=== PATIENT | female | born 1985 | race Caucasian/White ===

== ENCOUNTER 2017-06-19 20:48 | Inpatient (IN) | payer MEDICAID, OTHER, SELFPAY ==
--- NOTE | 2017-06-19 22:13 | ULT ---
PELVIC ULTRASOUND: 06/19/17 INDICATION: Pelvic pain, right flank pain, back pain with fever. TECHNIQUE: Torres scale, color doppler and vascular duplex with spectral analysis performed of the pelvis via a tr ansabdominal and transvaginal approach. FINDINGS: The uterus measures 8.2 x 4.4 x 4.8 cm. Endometrial strip measures 0.5 cm. Right ovary measures 3.7 x 1.5 x 3 cm. There is a septated follicle within the right ovary measuring 1.4 cm. There is normal flow to the right ovary. Left ovary measures 3.0 x 4.3 x 3.3 cm. There are multiple follicles seen within the left ovary. No free fluid is evident. IMPRESSION: 1. No acute abnormality. 2. Mildly septated follicle within the right ovary likely reflective of an involuting follicle. 3. No free fluid demonstrated. POS: [facility]
--- NOTE | 2017-06-19 22:29 | ULT ---
RIGHT UPPER QUADRANT ULTRASOUND: 06/19/17 INDICATION: Pelvic pain and right flank pain and fever. FINDINGS: The liver measures 18.2 cm . There is a hyperechoic lesion seen within the right hepatic lobe measuri ng 1.1 cm that is stable to the comparison renal ultrasound dated 03/17/13 likely reflecting of a louis ngioma. An additional hypoechoic lesion is seen adjacent to the gallbladder measuring 2.9 cm. It is f airly heterogeneous in appearance. Comparison with a CT examination from [facility] on 06/19 demonstrates some nodularity of the liver within this region with some adjacent intrahepatic bili franco ductal dilatation but with no discernible mass. Residential Substance Abuse Counselor notes that this area measured 2.9 x 1. 7 x 2.2 cm. The gallbladder is distended without visible stones. No sonographic Tapia's sign is reported. The co mmon bile duct measures 1.6 mm which is normal. The right kidney measures 11.1 x 5.7 x 5.9 cm. There is a thick walled cystic lesion seen involving the right mid kidney measuring 4 x 3.8 x 3.6 cm. This corresponds to a mildly septated cyst seen within the right mid kidney on the prior renal ultra sound exam in 2013 measuring 2 cm. There was an adjacent hyperechoic mass suspicious for an angiomyol ipoma within the right kidney on the comparison study that is not well seen on the current study. No hydronephrosis is evident. The visualized pancreas is unremarkable. IMPRESSION: 1. Mildly complex thick walled cystic abnormality involving the right mid kidney appears more pr ominent than on the comparison examination in 2014. Followup CT of the abdomen utilizing renal mass p rotocol is recommended for additional characterization. 2. The previously seen hyperechoic mass seen within the right kidney on the comparison renal ult rasound dated 03/17/13 is not well seen and was suspicious for a small renal angiomyolipoma. There is no evidence to suggest hemorrhage on the CT examination performed at [facility]. T his could be further evaluated on the CT of the abdomen utilizing renal mass protocol. 3. Mildly distended gallbladder without evidence of acute cholecystitis or intraluminal stones. 4. Stable hemangioma within the right hepatic lobe. 5. Hypoechoic lesion suggested on the current ultrasound examination adjacent to the gallbladder is not definitely seen on the recently performed CT. This can be further assessed on the multiphase examination recommended above. 6. Urology consultation may be helpful at some point in time for evaluation of the patient's com plex cystic lesion seen within the right mid kidney. POS: [facility]
[2017-06-19] MEDS ORDERED: Ondansetron HCl/PF 4 MG/2 ML Vial IVP PRN (22:56)
[2017-06-19] MEDS ORDERED: Acetaminophen 1,000 MG in Premix Bag 1 BAG IVPB PRN (23:00)
[2017-06-19] MEDS ORDERED: Morphine 4 MG/ML VIAL SLOW IVP PRN ×2 (23:30)
[2017-06-19] MEDS: D5 1/2 NS w/20 mEq KCL 1,000 ML IV SCH (23:43)
--- NOTE | 2017-06-20 01:00 | HP ---
CHIEF COMPLAINT: Pelvic pain. HISTORY OF PRESENT ILLNESS: The patient is a 32-year-old female who reports about a 20-hour history of lower abdominal pain associated with fever to 103 degrees. She denies any nausea or vomiting. Sh e never had any previous episodes. Last menstrual period was 2 weeks ago. She denies any change in bowel habits or diarrhea. No dysuria. PAST MEDICAL HISTORY: She has bipolar depression. PAST SURGICAL HISTORY: None. MEDICATIONS: Effexor. ALLERGIES: No known drug allergies. SOCIAL HISTORY: She is , smokes one-half to 1 pack per day. Denies alcohol use. She is un employed. FAMILY HISTORY: Father had congestive heart failure. Mother with breast cancer and ovarian cancer. PHYSICAL EXAMINATION: VITAL SIGNS: Temperature 100, pulse 94, blood pressure 132/94. GENERAL: She is a thin female lying still, awake, alert. HEENT: Unremarkable. LUNGS: Clear. HEART: Regular rate and rhythm. ABDOMEN: Distended. She is tender on the right flank, right lower quadrant, and the pelvis. I do n ot feel any masses. EXTREMITIES: Normal. LABORATORY AND X-RAY FINDINGS: CT scan showed a cystic lesion in her kidney, somewhat distended gall bladder and a hemangioma in the liver. She was sent here for further evaluation. Here, she had an u ltrasound that showed complex cystic lesion right mid kidney. There is a probable hemangioma in her liver, distended gallbladder, no stones, no sonographic Tapia sign. Ultrasound of the pelvis showed no free fluid and recent ovarian cystic rupture. HCG is negative. LFTs normal. White count is 20, 000, H&H 13 and 37, platelet count 361. Urinalysis 2-5 white cells. ASSESSMENT: Right lower quadrant pain, tenderness, fever, leukocytosis. Normal CT with abnormal rig ht kidney as well. PLAN: Admit, IV antibiotics. If in the morning, she is not any better, recommend diagnostic laparos copy with appendectomy.
[2017-06-20] MEDS: Meropenem 2 GM, Admixture Fee 1 EACH in Sodium Chloride 0.9% 100 ML IVPB SCH ×4 (01:49→23:45)
[2017-06-20 02:41] VITALS: BMI 18.0
[2017-06-20 05:08] LABS: Anion Gap 13 mmol/L (10-20); BUN (Urea Nitrogen) 8 mg/dL (7.0-18.7); Calc. Creatinine Clearance 88 mL/min (70-130); Calcium 8.7 mg/dL (7.8-10.44); Carbon Dioxide 25 mmol/L (22-29); Chloride 104 mmol/L (98-107); Estimated GFR-MDRD Greater than 90; Glucose 91 mg/dL (70-105); Potassium 3.8 mmol/L (3.5-5.1); Sodium 138 mmol/L (136-145)
[2017-06-20 05:23] LABS: Band 8 % (5-11); Hemoglobin 11.6 g/dL (12.0-16.0); Lymphocytes 10 % (21-51); MDiff Complete? YES; Mean Corpuscular HGB CONC 32.7 g/dL (32.0-36.0); Mean Corpuscular Hemoglobin 29.5 pg (27.0-31.0); Mean Corpuscular Volume 90.2 fl (81.0-99.0); Mean Platelet Volume 7.3 fL (7.4-10.4); Monocytes 7 % (0-10); Neutrophil 71 % (42-75); PLT Morphology Comment Appears Adequate; Platelet Count 318 thou/uL (130-400); RBC Distribution Width 13.1 % (11.5-14.5); RBC Morphology Normal; Reactive Lymphocytes 4 % (0-10); Red Blood Cell (RBC) Count 3.95 mill/uL (4.20-5.40); White Blood Cell (WBC) Count 22.1 thou/uL (4.8-10.8)
[2017-06-20] MEDS: D5 1/2 NS w/20 mEq KCL 1,000 ML IV SCH ×3 (06:32→20:57)
[2017-06-20] MEDS ORDERED: Morphine 4 MG/ML VIAL ONE (07:53)
[2017-06-20] MEDS ORDERED: Bupivacaine/Epinephrine 0.25% 30 ML VIAL ONE (08:52)
[2017-06-20] MEDS ORDERED: Fentanyl 250 MCG/5 ML VIAL ONE (09:04)
[2017-06-20] MEDS ORDERED: Midazolam HCl 2 mg/2 ml Vial ONE (09:04)
[2017-06-20] MEDS ORDERED: Dextrose 50% Abboject 50 ML SYRINGE SLOW IVP PRN (10:17)
[2017-06-20] MEDS ORDERED: Ondansetron HCl/PF 4 MG/2 ML Vial IVP PRN ×2 (10:17→10:32)
[2017-06-20] MEDS ORDERED: Dextrose 5% in Water 1,000 ML IV PRN (10:17)
[2017-06-20] MEDS ORDERED: Promethazine HCl 25 MG/ML VIAL IM PRN ×2 (10:17→10:32)
[2017-06-20] MEDS ORDERED: HYDROcodone/Acetaminophen 10/325 mg Tablet PO PRN (10:17)
[2017-06-20] MEDS ORDERED: hydrALAZINE 20 MG/ML VIAL SLOW IVP PRN (10:17)
[2017-06-20] MEDS ORDERED: Promethazine HCl 25 MG/ML VIAL SLOW IVP PRN (10:32)
[2017-06-20] MEDS: Piperacillin/Tazobactam 3.375 GM in Sodium Chloride 0.9% 100 ML IVPB SCH ×3 (12:15→23:44)
--- NOTE | 2017-06-20 12:59 | OP ---
PREOPERATIVE DIAGNOSIS: Right lower quadrant pain with fever. SURGEON: Lj Galicia M.D. PROCEDURES PERFORMED: Diagnostic laparoscopy, laparoscopic appendectomy, removal of pelvic fluid for culture, wedge liver biopsy. INDICATIONS: This is a 32-year-old female who presented with a 24-hour history of right lower quadra nt pain. She is very thin. CT scan and ultrasound, negative. FINDINGS: Normal appendix. She had a non-incarcerated left inguinal hernia. She had a normal smal l bowel, normal colon, normal gallbladder. She had a solid mass that was somewhat suspicious just ab ove the gallbladder, which was biopsied. PROCEDURE IN DETAIL: After informed consent was obtained, the patient was taken to the operating pedro m and given general endotracheal anesthesia. She was placed in the supine position. The abdomen was prepped and draped in the usual fashion. Local anesthesia infiltrated subcutaneously and deep. A s ubumbilical incision was performed. The subcu divided sharply. The fascia grasped and two stay sutu res of 0 Vicryl placed to either side of midline. Midline incised. Digital palpation revealed no lo prabhu adhesions. A blunt 10/12 mm trocar inserted. Pneumoperitoneum was created to a pressure of 15 m mHg. The patient placed in Trendelenburg right side up position. Two 5-mm ports were placed, one in suprapubic and one in the right lateral abdomen. Cecum was found. The appendix was in the pelvis. The appendix was found and it appeared fairly normal. The mesoappendix was divided utilizing the Li gaSure. The base of the appendix was divided utilizing the linear 45 mm stapler. This was placed in an Endosac and removed from the abdomen in an Endosac and in the pelvis with some cloudy peritoneal fluid. This was aspirated and sent for culture. The ovaries were inspected. There were some follic ular cysts, but no evidence of pelvic inflammatory disease. This fluid was removed and sent for cult ure. The cecum looked normal. The ileum was inspected and ran back 3 feet, I did not see Meckel's, did not see evidence of Crohn's disease. On the left side, she had asymptomatic left inguinal hernia , which was empty, did not contain any viscera. The gallbladder appeared normal, but there was a pardeep id mass in the liver just above the gallbladder on the right lobe of the liver. This was biopsied. By using a wedge biopsy, the mass was partially excised utilizing Metzenbaum scissors and pieces were removed and sent to pathology. Other pieces were sent for AFB and fungus. The abdomen was irrigate d and irrigation fluid removed. Hemostasis was assured. Trocars and retractors removed. The fascia closed with interrupted 0 Vicryl suture. The skin closed with interrupted 4-0 Rapide. Dermabond ap plied. The patient tolerated the procedure well and was transferred to recovery in good condition. Sponge and needle count verified correct x2.
[2017-06-20] MEDS: Morphine 4 MG/ML VIAL SLOW IVP PRN ×3 (15:27→23:44)
[2017-06-20] MEDS ORDERED: PROPOFOL 200 MG/20 ML VIAL ONE (16:32)
[2017-06-20] MEDS ORDERED: diphenhydrAMINE 50 MG/ML VIAL ONE (16:32)
[2017-06-20] MEDS ORDERED: Dexamethasone 20 MG/5 ML VIAL ONE (16:32)
[2017-06-20] MEDS ORDERED: Succinylcholine Chloride 20 MG/ML 10 ml SYRINGE FS ONE (16:32)
[2017-06-20] MEDS ORDERED: Lidocaine 1% PF 5 ML VIAL ONE (16:32)
[2017-06-20] MEDS ORDERED: Glycopyrrolate 0.2 MG/ML 5 ML SYRINGE ONE (16:32)
[2017-06-20] MEDS ORDERED: PHENYLEPHRINE-NS 100 MCG/ML 10 ML SYRINGE ONE (16:32)
[2017-06-20] MEDS ORDERED: ePHEDrine/0.9% NaCl/PF SYRINGE 50 mg/10 ml ONE (16:32)
[2017-06-20] MEDS: HYDROcodone/Acetaminophen 10/325 mg Tablet PO PRN ×2 (16:51→21:03)
[2017-06-20] MEDS: Famotidine 20 MG TAB PO SCH (20:57)
[2017-06-20] MEDS ORDERED: Famotidine/PF 20 mg/2ml Vial SLOW IVP SCH (21:00)
--- NOTE | 2017-06-20 23:52 | CON ---
DATE OF HOSPITAL ADMISSION: 06/19/2017 DATE OF CONSULTATION REQUEST AND REPORT: 06/20/2017 REFERRING PHYSICIAN: Lj Galicia M.D. CHIEF COMPLAINT: 1. Right renal cyst of 4 years duration. N28.1 2. Right-sided abdominal and back pain for 2 weeks. R10.9 HISTORY OF PRESENT ILLNESS: Ms. Macarena Davidson is a 32-year-old unemployed white female, who reports that she has had pain in the right lower abdomen with associated fever to 103 degrees at home and has had pain symptoms intermittently over a period of about 2 weeks. She reports that any pressure on her abdomen or back bothers her. She does not report nausea or vomiting or colicky nature to her pain. She reports that is being continuous and is especially pressure related to the abdomen. The patient does not report nausea and vomiting. She has no history of passed kidney stones. She has no previous urologic history except for a renal cyst, which has been present in her kidney for about 4 years. The patient is unaware of the presence of her renal cyst. PAST MEDICAL HISTORY: 1. Chronic right-sided renal cyst present for more than 4 years. 2. Bipolar depression. 3. Polysubstance abuse. PAST SURGICAL HISTORY: None prior to this hospitalization, the patient did undergo an appendectomy and wedge resection of her liver for biopsy purposes on this hospital admission by Dr. Galicia. HOME MEDICATION LIST: Includes only Effexor. ALLERGIES: The patient has no known drug allergies. SOCIAL HISTORY: The patient is from her who is incarcerated. She has another sexual partner at the present time. She does not report any other issues. She does have a past history of cocaine use, also smokes one- half to 1 pack of cigarettes per day. She has 3 children at home. GYNECOLOGIC HISTORY: The patient is a 3, para 3. She has normal menstrual cycle of approximately 30 days. She reports her last menstrual period was about 2 weeks ago. She does not report abnormal vaginal discharge. FAMILY MEDICAL HISTORY: The patient's father had congestive heart failure. The patient's mother had breast and ovarian cancer. PHYSICAL EXAMINATION: VITAL SIGNS: Temperature is 97.8, pulse 72, respirations 20, O2 saturation is 99% on room air, and blood pressure is 99/64. The patient did have a temperature of 100.6 at admission yesterday. GENERAL: This is a thin built white female who is observed eating a cookie and has pizza at the bedside. She is apparently tolerating a diet at this point after recent surgery. She does move about the bed a fair amount and does not seem to be restricted in movement by pain symptoms. She assumes a position when discussing pain. HEAD, EYES, EARS, NOSE AND THROAT: Extraocular movements are intact. Sclerae are anicteric. Oropharynx is clear. NECK: Supple. LUNGS: Clear bilaterally. CARDIAC: Regular rate and rhythm. ABDOMEN: The patient has undergone recent surgery by Dr. Galicia. The patient reports pain symptoms located on the right of the midline in the abdomen. She reports pain in the right back area also. There is no true costovertebral angle tenderness. The patient has cognitive reflexes to palpation. These are not typical for a genitourinary disorder. PELVIS: Deferred. EXTREMITIES: The patient has full use of the bilateral lower extremities. PSYCHOLOGIC: The patient is more or less not cooperative with examination or evaluation. LABORATORY STUDIES: The patient's admission white count was 22,000, hemoglobin is 11.6, hematocrit of 35.6. Her differential had 71% neutrophils in normal range with a lymphocytosis of 10%. Serum chemistry shows the patient's blood urea nitrogen at 8 with a creatinine of 0.64. Estimated GFR of greater than 90% . No urinalysis is available for assessment. Microbiology is only available for fluids and tissue obtained at surgery. These are all still pending. RADIOLOGIC STUDIES: The patient apparently had a CT scan performed at [place] , which is not available for evaluation or assessment here at the [facility]. I do have a report from the radiologist regarding comparisons between those CT studies and ultrasound studies. I did compare the patient's right upper quadrant ultrasound, which included the patient's right kidney from 03/17/2013 to the current study of 06/19/2017. The patient does have right-sided renal cyst which in 2013 would be classed at least to 2F if not class 3. The patient's cyst had some mild wall thickening which was suspicious at that point. Current study from 06/19/2017 shows relative thinning of the previously observed thickened area, currently I would class the cyst at 2F or class 2. The cyst is located within the parenchyma of the patient 's right kidney which results in a relatively large compression of surrounding tissue and gives the impression of a thick wall. There is no increased blood flow in the wall on Doppler evaluation suggesting that this is not a metabolically active cyst. The cyst has demonstrated relative stability and a relative decrease in Bosniak class over the four-year duration between the two studies. Since this cyst has been present for more than 4 years is unlikely be the source of the patient's current pain symptoms which have been present only over the last two weeks. Previous ultrasound evaluation of the patient suggest the presence of an angiomyolipoma, which is apparently not well visualized on CT scanning of the patient's abdomen from [place]. ASSESSMENT AND PLAN: 1. Non-urologic flank pain. 2. Right renal cyst, Bosniak class 2-2F. The cysts have been reasonably stable over the last 4 years. They could be further evaluated by CT scanning. The patient did have a CT scan in [place] which is not available for evaluation or assessment here. The patient could have a repeat CT scan of the abdomen, specifically as a renal mass protocol to further evaluate renal cysts and lesions. Discussed this with the patient and she refuses further imaging. 3. Follow up. Patient may follow up in my office if she desires further evaluation of her renal cysts in the future. This initial hospital evaluation and assessment 70 minutes greater than 1/2 of which was in direct face to face evaluation of patient and in coordination of care, exclusive of any procedures performed [id number]. [facility]
[2017-06-21 04:35] LABS: #Eosinphils 0.1 thou/uL (0.0-0.7); #Lymphocytes 2.1 thou/uL (1.20-3.40); #Monocytes 1.8 thou/uL (0.11-0.59); #Neutrophils 17.9 thou/uL (1.40-6.50); %Eosinophils 0.5 % (0.0-10.0); %Lymphocytes 9.7 % (21.0-51.0); %Monocytes 8.1 % (0.0-10.0); %Neutrophils 81.6 % (42.0-75.0); Hemoglobin 11.1 g/dL (12.0-16.0); Mean Corpuscular HGB CONC 31.6 g/dL (32.0-36.0); Mean Corpuscular Hemoglobin 29.2 pg (27.0-31.0); Mean Corpuscular Volume 92.4 fl (81.0-99.0); Mean Platelet Volume 7.8 fL (7.4-10.4); Platelet Count 344 thou/uL (130-400); RBC Distribution Width 13.2 % (11.5-14.5); Red Blood Cell (RBC) Count 3.79 mill/uL (4.20-5.40)
[2017-06-21 04:42] LABS: Anion Gap 8 mmol/L (10-20); BUN (Urea Nitrogen) 12 mg/dL (7.0-18.7); Calc. Creatinine Clearance 91 mL/min (70-130); Calcium 8.9 mg/dL (7.8-10.44); Carbon Dioxide 27 mmol/L (22-29); Chloride 107 mmol/L (98-107); Estimated GFR-MDRD Greater than 90; Glucose 178 mg/dL (70-105); Potassium 4.4 mmol/L (3.5-5.1); Sodium 138 mmol/L (136-145)
[2017-06-21] MEDS: D5 1/2 NS w/20 mEq KCL 1,000 ML IV SCH ×2 (05:36→15:02)
[2017-06-21] MEDS: Piperacillin/Tazobactam 3.375 GM in Sodium Chloride 0.9% 100 ML IVPB SCH ×4 (05:36→23:33)
[2017-06-21] MEDS: HYDROcodone/Acetaminophen 10/325 mg Tablet PO PRN ×4 (05:40→23:34)
[2017-06-21] MEDS: Enoxaparin Sodium 40 MG/0.4 ML SYRINGE SC SCH (08:18)
[2017-06-21] MEDS: Famotidine 20 MG TAB PO SCH ×2 (08:18→20:44)
[2017-06-21] MEDS: Meropenem 2 GM, Admixture Fee 1 EACH in Sodium Chloride 0.9% 100 ML IVPB SCH ×2 (08:18→15:02)
[2017-06-21] MEDS: Morphine 4 MG/ML VIAL SLOW IVP PRN ×3 (08:23→20:44)
--- NOTE | 2017-06-21 13:54 | CT ---
CT ABDOMEN AND PELVIS WITH IV ENTERIC CONTRAST: INDICATIONS: History of appendicitis yesterday, now with surgical site pain. FINDINGS: There is a small amount of scattered intraperitoneal gas, consistent with the patient's recent postop state. A small amount of gas is seen overlying the right lower quadrant of the abdomen, which may b e related to the patient's surgical site. No large drainable fluid collection is evident. When compared to the prior CT examination from [facility] on 06/19/2017, periportal edema a nd intrahepatic biliary ductal dilatation remain. There are some layered densities now seen within t he gallbladder, which may reflect vicarious excretion of contrast within the gallbladder or a small a mount of gallbladder sludge that has developed in the interval. The complex cystic abnormality invol ving the right mid kidney measures 4.7 cm. There is a simple cyst seen within the left kidney. The adrenal glands, pancreas, and spleen appear within normal limits. No large drainable fluid collectio n is seen within the abdomen or pelvis. Mild free fluid is seen within the lower pelvis. The small and large bowel are unobstructed. No acute osseous abnormality is evident. IMPRESSION: 1. Interval post surgical change with intraperitoneal gas seen within the abdomen and pelvis. 2. Gas seen within the soft tissues overlying the right lower quadrant of the abdomen, as well as in the periumbilical region, which is likely related to incisional sites. No large drainable fluid col lection is evident. 3. Mild free fluid in the pelvis. 4. Persistent mild intrahepatic biliary ductal dilatation with mild periportal edema. 5. Stable complex cystic abnormality involving the right mid kidney. POS: [facility]
[2017-06-21] MEDS ORDERED: ISOVUE-370 76%-LOCM 1 ML ONE (16:10)
[2017-06-21] MEDS ORDERED: Iopamidol 370 76% 50 ML VIAL FS ONE (16:10)
[2017-06-21 17:00] LABS: Bilirubin Negative (Negative); Blood, Urine Negative (Negative); Clarity CLEAR (Clear); Glucose, Urine (Dipstick) Negative (Negative); Leukocyte Negative (Negative); Nitrite Negative (Negative); Protein, Urine (Dipstick) Negative (Neg-Trace); Specific Gravity, Urine 1.042 (1.002-1.036)
[2017-06-21 17:03] LABS: Bacteria/HPF None Seen HPF (None Seen); Hyaline Casts/LPF 0-3 HYALINE CAST LPF (0-3 Hyaline); Pathc Cast-AUWi Flag 0.72 (0-2.49); RBC/HPF 0-3 HPF (0-3); Squamous Epithelial 0-3 HPF (0-3)
[2017-06-22] MEDS: Meropenem 2 GM, Admixture Fee 1 EACH in Sodium Chloride 0.9% 100 ML IVPB SCH ×3 (00:43→17:29)
[2017-06-22] MEDS: Morphine 4 MG/ML VIAL SLOW IVP PRN ×4 (02:42→20:11)
[2017-06-22] MEDS: D5 1/2 NS w/20 mEq KCL 1,000 ML IV SCH ×4 (02:43→23:12)
[2017-06-22] MEDS: Piperacillin/Tazobactam 3.375 GM in Sodium Chloride 0.9% 100 ML IVPB SCH ×4 (05:58→23:09)
[2017-06-22] MEDS: HYDROcodone/Acetaminophen 10/325 mg Tablet PO PRN ×4 (06:00→23:08)
[2017-06-22 06:28] LABS: Band 7 % (5-11); Hemoglobin 11.3 g/dL (12.0-16.0); Hypochromia SLIGHT = 6-15 cells (100X) (0-5/hpf); Lymphocytes 11 % (21-51); MDiff Complete? YES; Mean Corpuscular HGB CONC 30.9 g/dL (32.0-36.0); Mean Corpuscular Hemoglobin 28.5 pg (27.0-31.0); Mean Corpuscular Volume 92.1 fl (81.0-99.0); Mean Platelet Volume 7.4 fL (7.4-10.4); Monocytes 4 % (0-10); Neutrophil 77 % (42-75); PLT Morphology Comment Appears Increased; Platelet Count 415 thou/uL (130-400); Polychromasia SLIGHT = 2-3 cells (100X) (0-2/hpf); RBC Distribution Width 13.1 % (11.5-14.5); Reactive Lymphocytes 1 % (0-10); Red Blood Cell (RBC) Count 3.96 mill/uL (4.20-5.40); White Blood Cell (WBC) Count 18.5 thou/uL (4.8-10.8)
[2017-06-22] MEDS: Enoxaparin Sodium 40 MG/0.4 ML SYRINGE SC SCH (08:20)
[2017-06-22] MEDS: Famotidine 20 MG TAB PO SCH ×2 (08:20→20:10)
[2017-06-22] MEDS ORDERED: Magnesium Citrate 300 ML BOT PO SCH (16:15)
--- NOTE | 2017-06-22 18:20 | PRG ---
DATE OF SERVICE: 06/22/2017 SUBJECTIVE: Macarena Davidson is complaining of pain today and she wants to go home. OBJECTIVE: VITAL SIGNS: 98.5 degrees, 89, 111/76. LUNGS: Clear to auscultation. CARDIAC: Regular rate and rhythm without murmur or gallop. ABDOMEN: Soft. She has diffuse tenderness with voluntary guarding. Otherwise, abdomen is soft. EXTREMITIES: Surgical wounds look good, clean and dry. LABORATORY DATA: This morning, her white count is down to 18,000 from 22,000 yesterday. Her differe ntial is essentially unremarkable. Basic metabolic profile is normal. Cultures remain negative. ASSESSMENT AND PLAN: Leukocytosis, abdominal pain of uncertain etiology. Abdominal pelvic CAT scan obtained yesterday was essentially unremarkable and does not reveal anything to explain her leukocyto sis, pain or fever. Dr. Ojeda' consultation is pending. She does have quite a bit of stool in her r ight colon. We will give her magnesium citrate to see if that helps her symptoms at all.
[2017-06-23] MEDS: Meropenem 2 GM, Admixture Fee 1 EACH in Sodium Chloride 0.9% 100 ML IVPB SCH ×4 (00:21→23:50)
[2017-06-23] MEDS: HYDROcodone/Acetaminophen 10/325 mg Tablet PO PRN ×5 (03:13→22:11)
[2017-06-23] MEDS: Morphine 4 MG/ML VIAL SLOW IVP PRN ×4 (05:37→20:33)
[2017-06-23] MEDS: Piperacillin/Tazobactam 3.375 GM in Sodium Chloride 0.9% 100 ML IVPB SCH ×4 (05:38→23:11)
[2017-06-23] MEDS: D5 1/2 NS w/20 mEq KCL 1,000 ML IV SCH ×3 (08:14→22:18)
[2017-06-23] MEDS: Famotidine 20 MG TAB PO SCH ×2 (08:15→20:33)
[2017-06-23] MEDS: Enoxaparin Sodium 40 MG/0.4 ML SYRINGE SC SCH (08:15)
[2017-06-23 15:06] LABS: ALT (SGPT) 21 U/L (8-55); AST (SGOT) 13 U/L (5-34); Alkaline Phosphatase 135 U/L (40-150); Bilirubin, Direct 0.1 mg/dL (0.1-0.3); Bilirubin, Total 0.2 mg/dL (0.2-1.2)
--- NOTE | 2017-06-23 15:26 | CON ---
DATE OF CONSULTATION: 06/23/2017 REASON FOR CONSULTATION: Abdominal pain, fever. HISTORY OF PRESENT ILLNESS: A 32-year-old who has a history of depression and history of prior IV drug use, methamphetamine and cocaine. Reportedly, last episode was about 8 months ago who developed intermittent headaches with fever for the past 2-3 weeks before admission. A week and half before admission, she developed abdominal pain, which is described in the lower abdominal segment. No visual symptoms, sore throat, odynophagia, dysphagia, no toothache, moderate back pain after she was admitted. She has chronic back pain intermittently. No cough, no dyspnea or chest pain. No genitourinary symptoms. No diarrhea, no constipation or bleeding, no joint symptoms. No neurological symptoms. PAST MEDICAL HISTORY: Bipolar disorder. PAST SURGICAL HISTORY: Negative until current procedure. ALLERGIES: None. SOCIAL HISTORY: . Current smoker, history of IV drug use in the past including methamphetamine and cocaine, last time she used reportedly 8 months ago. FAMILY HISTORY: Cardiomyopathy, breast cancer, ovarian cancer. PHYSICAL EXAMINATION: VITAL SIGNS: T-max 100.6 and then 100.4, now she has been afebrile, blood pressure 130/87, pulse 90, respirations 16, O2 sat 95%-99%. SKIN: Shows few tattoos. She has peripheral IV access. No Dotson catheter and she have ports for the laparoscopy which have the usual appearance. No lymphadenopathy. HEENT: Ocular movements conjugate. Sclerae are white. Conjunctivae normal. Pupils are equal and reactive. Oral cavity normal. Teeth in good shape. NECK: Supple, no jugular vein distention. LUNGS: With symmetric clear breath sounds. HEART: S1 and S2, regular rate without murmurs, fairly prominent S4. ABDOMEN: Moderately distended and quite tender to palpation. She did not allow me to properly examine it because of the fear of tendon of pain being induced. No bladder distention. EXTREMITIES: No joint inflammatory activity. Pulses 1+ and dorsalis pedis. Plantar responses are flexure. She moves extremities equally. Cognitive function appears to be intact. LABORATORY DATA AND IMAGING DATA: Showed white cell count initially of 22,000, now 18.5, hemoglobin 11, platelets 318 and now 450, neutrophils 77%. Sodium 138 , creatinine 0.64. Urinalysis with 4-6 wbc's, 0-3 rbc's. There is a pelvis ultrasound from 03/17/2017 which showed an intrauterine gestation. There is an abdominal ultrasound from 06/19/2017 with mildly complex thick walled cystic abnormality in the right mid kidney more prominent on comparison with exam in 2013. There was a hyperechoic mass in right kidney, felt to be an angiomyolipoma, mildly distended gallbladder, but no evidence of cholecystitis hemangioma within the right hepatic lobe. There is a pelvic transvaginal ultrasound with no acute abnormality and a septated follicle within the right ovary. There is an abdomen and pelvis CT with surgical changes with intraperitoneal gas, gas in soft tissues in the right lower quadrant, also probably surgical changes related. No fluid collection noted. Mild free fluid in the pelvis and mild intrahepatic biliary ductal dilatation with mild periportal edema. Cultures from the pelvic fluid yielded various anaerobes. ASSESSMENT: 1. History of IV drug use, last time few months ago. 2. Fever for the past 2-3 weeks. 3. Abdominal pain with negative findings on laparoscopy except for lesion in the liver of unknown nature, which was biopsied. 4. Persistence of abdominal tenderness. 5. Mild dilatation of the biliary system. 6. Mixed anaerobic pelvic inflammatory process DISCUSSION: Differential diagnosis includes Pelvic inflammatory disease with mixed anaerobes without tuboovarian abscess, endocarditis in view of the history of IV drug use with possible embolic phenomena. A colon associated inflammatory process does not appear likely in view of the negative laparoscopy. We will check 2D echocardiogram. Unfortunately, blood cultures do not seem to have been submitted. Wait on the above results of the biopsy. Check HIV and hepatitis C serology. Check cryoglobulin titer and liver panel which has not been submitted yet. Continue antimicrobial tx for a presumed pelvic inflammatory process with mixed anaerobic julianne. MTDD
[2017-06-23 15:31] LABS: HIV (1/2) Antibody/Antigen Non-Reactive (NonReactive); HIV 1/2 INDEX 0.14 S/CO (<1.00); Hep C IgG Ab Non-Reactive (NonReactive); Hep C Index 0.18 S/CO (0-0.79)
--- NOTE | 2017-06-23 20:50 | PRG ---
DATE OF SERVICE: 06/23/2017 SUBJECTIVE: Macarena Davidson is tolerating a regular diet. When I walked into the room, she was sleep ing in her bed with her significant other. When I awaked her to ask her how she is doing, she grimac es and states not well. She, however, does state she is tolerating regular diet, having bowel functi on. OBJECTIVE: LUNGS: Clear to auscultation. CARDIAC: Regular rate and rhythm without murmur or gallop. ABDOMEN: Voluntary guarding. Soft, bowel sounds present. No peritoneal signs. LABORATORY DATA: No laboratories. ASSESSMENT AND PLAN: Has been seen by Dr. Ojeda, await laboratory studies, to recheck CBC in the [facility]. No other changes today.
[2017-06-24] MEDS: HYDROcodone/Acetaminophen 10/325 mg Tablet PO PRN ×3 (03:39→12:12)
[2017-06-24 05:24] LABS: #Eosinphils 0.5 thou/uL (0.0-0.7); #Lymphocytes 1.6 thou/uL (1.20-3.40); #Monocytes 0.8 thou/uL (0.11-0.59); #Neutrophils 10.9 thou/uL (1.40-6.50); %Basophils 0.1 % (0.0-1.0); %Eosinophils 3.6 % (0.0-10.0); %Lymphocytes 11.8 % (21.0-51.0); %Monocytes 5.7 % (0.0-10.0); %Neutrophils 78.7 % (42.0-75.0); Hemoglobin 11.6 g/dL (12.0-16.0); Mean Corpuscular HGB CONC 32.6 g/dL (32.0-36.0); Mean Corpuscular Hemoglobin 29.6 pg (27.0-31.0); Mean Corpuscular Volume 90.9 fl (81.0-99.0); Mean Platelet Volume 6.7 fL (7.4-10.4); Platelet Count 473 thou/uL (130-400); RBC Distribution Width 12.9 % (11.5-14.5); Red Blood Cell (RBC) Count 3.92 mill/uL (4.20-5.40); White Blood Cell (WBC) Count 13.9 thou/uL (4.8-10.8)
[2017-06-24] MEDS: Piperacillin/Tazobactam 3.375 GM in Sodium Chloride 0.9% 100 ML IVPB SCH ×2 (05:31→11:59)
[2017-06-24] MEDS: Meropenem 2 GM, Admixture Fee 1 EACH in Sodium Chloride 0.9% 100 ML IVPB SCH (08:25)
[2017-06-24] MEDS: Famotidine 20 MG TAB PO SCH (08:25)
[2017-06-24] MEDS: Enoxaparin Sodium 40 MG/0.4 ML SYRINGE SC SCH (08:25)
[2017-06-24] MEDS: D5 1/2 NS w/20 mEq KCL 1,000 ML IV SCH (08:28)
[2017-06-24 09:11] LABS: Fungus Stain Final report (.)
--- NOTE | 2017-06-24 10:45 | DIS ---
DISCHARGE DIAGNOSES: Appendicitis, focal nodular hyperplasia of the liver. PROCEDURES DURING ADMISSION: Laparoscopic appendectomy, laparoscopic wedge liver biopsy. CT scans o f abdomen and pelvis. HOSPITAL COURSE: The patient was admitted. CT scan was negative. She continued to have right lower quadrant abdominal pain. She was taken to the operating room where she underwent a diagnostic lapar oscopy and laparoscopic appendectomy. Postoperatively, she continued to have high fever and white co unt. Infectious Disease was consulted. We really could not come up with a definite source. However , the pathology came back early appendicitis, focal nodular hyperplasia of the liver. She is feeling a lot better today. She is tolerating a diet. She is passing stool and gas. [facility]. We will send her home with doxycycline, Zofran and [place].
[2017-06-24 11:52] VITALS: BP 117/79; TEMP 97.6
== END 2017-06-24 13:31 | disposition home or self-care (01) | DRG 343 ==
LOC: ERS 20:48 → SURG A 22:59
PROVIDERS: ADMIT Surgery; ATTEND Surgery
PROC: 0DTJ4ZZ Resection of Appendix, Percutaneous Endoscopic Approach (ICD-10-PCS; principal; 2017-06-20)
PROC: 0FB14ZX Excision of Right Lobe Liver, Percutaneous Endoscopic Approach, Diagnostic (ICD-10-PCS; 2017-06-20)
DX: R10.31 Right lower quadrant pain (principal); K76.89 Other specified diseases of liver; N28.1 Cyst of kidney, acquired; R50.9 Fever, unspecified; D72.829 Elevated white blood cell count, unspecified; K37 Unspecified appendicitis; F14.10 Cocaine abuse, uncomplicated; F32.9 Major depressive disorder, single episode, unspecified; F15.10 Other stimulant abuse, uncomplicated; F31.9 Bipolar disorder, unspecified; F17.210 Nicotine dependence, cigarettes, uncomplicated; K40.90 Unilateral inguinal hernia, without obstruction or gangrene, not specified as recurrent; Z82.49 Family history of ischemic heart disease and other diseases of the circulatory system
CPT/HCPCS: 36415; 74177; 76705; 76856; 80048; 80076; 81001; 85025; 86803; 87070; 87102; 87116; 87205; 87206; 87389; 88304; 88307; 88313; 93306; 96360; 96361; 99406; J0131; J1100; J1200; J1650; J2001; J2185; J2250; J2270; J2543; J2704; J3010; J7050